=== PATIENT | male | born 1965 | race Hispanic/Latino ===

== ENCOUNTER 2017-03-01 17:22 | Emergency (ER) | payer SELFPAY ==
[~2017-03-01] VITALS: Ht 175.3 cm; Wt 99.8 kg
[~2017-03-01 17:22] MED LIST: GUAIATUSSIN AC10 ML PO
[2017-03-01] MEDS ORDERED: DICLOFENAC SODI75 MG PO (19:31)
== END 2017-03-01 19:42 | disposition home or self-care (01) ==
LOC: ED 17:22
DX: M25.562 Pain in left knee (principal); Z88.5 Allergy status to narcotic agent
CPT/HCPCS: 73560; 99283

== ENCOUNTER 2017-06-30 12:39 | Emergency (ER) | payer OTHER ==
[~2017-06-30] VITALS: Ht 175.3 cm; Wt 99.8 kg
[~2017-06-30 12:39] MED LIST changes: +DICLOFENAC SODI75 MG PO
[2017-06-30] MEDS ORDERED: ROBAXIN-750750 MG PO (13:20)
== END 2017-06-30 13:32 | disposition home or self-care (01) ==
LOC: ED 12:39
DX: M62.830 Muscle spasm of back (principal); Z88.5 Allergy status to narcotic agent
CPT/HCPCS: 81001; 99283

== ENCOUNTER 2017-12-13 17:18 | Emergency (ER) | payer OTHER ==
[~2017-12-13] VITALS: Ht 175.3 cm; Wt 99.8 kg
[~2017-12-13 17:18] MED LIST changes: +ROBAXIN-750750 MG PO
== END 2017-12-13 17:48 | disposition home or self-care (01) ==
LOC: ED 17:18
DX: M79.89 Other specified soft tissue disorders (principal)

== ENCOUNTER 2018-09-06 01:14 | Emergency (ER) | payer SELFPAY ==
[~2018-09-06] VITALS: Ht 175.3 cm; Wt 99.8 kg
== END 2018-09-06 03:20 | disposition home or self-care (01) ==
LOC: ED 01:14
DX: E86.0 Dehydration (principal); Z88.5 Allergy status to narcotic agent
CPT/HCPCS: 80053; 85025; 96360; 96361; 99284-25; J7030

== ENCOUNTER 2020-10-11 11:51 | Emergency (ER) | payer OTHER ==
[~2020-10-11] VITALS: Ht 175.3 cm; Wt 99.8 kg
[2020-10-11] MEDS ORDERED: PREDNISONE20 MG PO (13:43)
[2020-10-11] MEDS ORDERED: ZYRTEC10 MG PO (13:43)
[2020-10-11] MEDS ORDERED: PEPCID40 MG PO (13:43)
[2020-10-11] MEDS ORDERED: REDNESS RELIEF15 M1 OPTH (13:43)
== END 2020-10-11 13:56 | disposition home or self-care (01) ==
LOC: ED 11:51
DX: H10.13 Acute atopic conjunctivitis, bilateral (principal); Z88.5 Allergy status to narcotic agent
CPT/HCPCS: 96374; 96375; 99283-25; J0171; J1200; J2930